=== PATIENT | female | born 1975 | race Caucasian/White ===

== ENCOUNTER → 2020-10-07 08:23 | Outpatient (CLI) | payer OTHER, SELFPAY ==
--- NOTE | ~2020-10-07 | US_ITS ---
US thyroid INDICATION: Iodine deficiency related diffuse goiter. TECHNIQUE: Real-time sonographic images of the thyroid gland were obtained. COMPARISON: No prior studies for comparison. FINDINGS: The right thyroid lobe measures 3.8 x 1.8 x 1.4 cm. The left thyroid lobe measures 4.3 x 1 .5 x 1.4 cm. There is heterogeneous echotexture and echogenicity throughout the thyroid gland. No dis crete nodules identified. Normal vascular flow is present. Isthmus measures 2 mm thickness. IMPRESSION: 1. Heterogeneous thyroid gland without discrete mass. Reviewed, dictated and finalized at location B. NTIFIC AIDE
--- NOTE | ~2020-10-07 | XR_ITS ---
EXAMINATION: XR abdomen obstructive series DATE: 10/07/2020 09:16 INDICATION: Right lower quadrant abdominal pain. TECHNIQUE: Upright and supine views of the abdomen on 3 radiographs were obtained. COMPARISON: Abdomen radiographs 04/19/2018 FINDINGS: There are no dilated loops of bowel. There is a moderate volume of stool in the colon. No f ree intraperitoneal gas. There is an intrauterine device in expected position. IMPRESSION: 1. Normal bowel gas pattern. Reviewed, dictated and finalized at location A. OL CHILD CARE ATTENDANT
--- NOTE | ~2020-10-07 | XR_ITS ---
EXAMINATION: XR lumbar spine min 4V DATE: 10/07/2020 09:16 INDICATION: Low back pain TECHNIQUE: Anteroposterior, lateral, and bilateral oblique views of the lumbar spine, and cone-down l ateral view of the lumbosacral junction were obtained. COMPARISON: None. FINDINGS: There is no fracture, dislocation, or subluxation. The vertebral body heights and intervert ebral disc spaces are normal. There is mild facet osteoarthritis of the lower lumbar spine. An IUD is noted. IMPRESSION: 1. Mild lumbar spondylosis without acute findings. Reviewed, dictated and finalized at location A. ITY BILL COLLECTOR
== END ==
PROVIDERS: PCP Family Medicine; Visit Provider Family Medicine
DX: R10.31 Right lower quadrant pain (principal); E01.0 Iodine-deficiency related diffuse (endemic) goiter; M47.896 Other spondylosis, lumbar region
CPT/HCPCS: 72110; 74019; 76536

== ENCOUNTER → 2020-10-19 14:22 | Outpatient (CLI) | payer OTHER, SELFPAY ==
--- NOTE | ~2020-10-19 | CT_ITS ---
EXAMINATION: CT abdomen pelvis w con DATE: 10/19/2020 15:00 INDICATION: Right lower quadrant abdominal pain, low back pain TECHNIQUE: Computed tomography (CT) of the abdomen and pelvis was performed with 100 cc Omnipaque 350 intravenous contrast. Automated exposure control and iterative reconstruction technique were employe d. Exam dose: 1011.89 mGy-cm total exam DLP. COMPARISON: 10/07/2020 obstructive series FINDINGS: The lung bases are clear of infiltrate or consolidation. Heart size is borderline. No peric ardial or pleural effusion. The liver, gallbladder, bile ducts, pancreas, pancreatic duct are unremarkable. There splenic megaly, spleen measuring up to 16 cm vertical dimension, 14 cm being upper limits of no rmal. Normal morphology of the adrenal glands. No renal mass lesion. No urinary tract calculus or hydroureteronephrosis. Normal caliber of the abdominal aorta. No intraperitoneal or retroperitoneal or pelvic mass lesion or adenopathy or ascites. There is an IUD within the uterus. 1 left ovarian probable cysts; this would be better evaluated by p elvic ultrasound if clinically indicated .7 cm left ovarian probable cyst. The urinary bladder is unr emarkable. Small sliding hiatal hernia. Minimal diverticulosis of the sigmoid colon; no CT evidence of diverticulitis. No bowel obstruction, bowel wall thickening, pneumatosis or intraperitoneal free air. Normal appendix. Small fat-containing umbilical hernia. Included skeletal structures are unremarkable. IMPRESSION: Normal appendix IUD within uterus 1.7 cm left ovarian probable cyst Minimal diverticulosis of the colon Small sliding hiatal hernia Reviewed, dictated and finalized at Location A. Reviewed, dictated and finalized at location A. DIRECTOR
== END ==
PROVIDERS: PCP Family Medicine; Visit Provider Family Medicine
DX: R10.31 Right lower quadrant pain (principal); K57.30 Diverticulosis of large intestine without perforation or abscess without bleeding; K44.9 Diaphragmatic hernia without obstruction or gangrene; Z97.5 Presence of (intrauterine) contraceptive device
CPT/HCPCS: 74177; Q9967

== ENCOUNTER 2021-06-23 07:57 | Outpatient (CLI) | payer OTHER, SELFPAY ==
--- NOTE | ~2021-06-23 | MR_ITS ---
EXAMINATION: MR knee LT wo con DATE: 06/23/2021 09:16 INDICATION: Acute left knee pain. TECHNIQUE: Magnetic resonance imaging (MRI) of the left knee was performed without intravenous contra st. Sequences included axial PD-weighted FS FSE, coronal PD-weighted FSE and PD-weighted FS FSE, sagi ttal PD-weighted FSE, sagittal T2-weighted FS FSE, and axial and coronal STIR FSE. COMPARISON: None. FINDINGS: Medial compartment: Medial meniscus is normal. There is shallow partial-thickness cartilage loss of femoral condyle invol ving the central and posterior articular surface. Tibial cartilage is normal. Lateral compartment: There is a radial tear of posterior horn and posterior root of lateral meniscus. There is cartilage s urface irregularity of tibial condyle and femoral condyle. Patellofemoral compartment: There is shallow partial-thickness cartilage loss of patellar medial facet and odd facet. There is pa rtial-thickness cartilage loss of central trochlea with minimal subchondral edema-like marrow signal intensity. Ligaments and tendons: There are changes of anterior cruciate ligament reconstruction with intact graft. Posterior cruciate ligament demonstrates increased signal, consistent with partial tear. Medial collateral ligament is n ormal. There are changes of prior sprain of tibial collateral ligament characterized by thickening an d increased signal intensity proximally. The patellar tendon is normal. Fluid: There is a small knee joint effusion. There is trace fluid in a Faustin's cyst. There is mild prepatell ar and superficial infrapatellar bursitis. IMPRESSION: 1. Mild tricompartmental chondrosis. 2. Intact anterior cruciate ligament reconstruction. 3. Partial tear of posterior cruciate ligament. 4. Tear of lateral meniscus. 5. Small knee joint effusion. Reviewed, dictated and finalized at location A.
== END 2021-06-23 07:58 | disposition home or self-care (01) ==
LOC: ANHIMG 08:02
PROVIDERS: PCP Family Medicine; Visit Provider Orthopaedic Surgery
DX: M25.462 Effusion, left knee (principal); M17.12 Unilateral primary osteoarthritis, left knee; S83.282A Other tear of lateral meniscus, current injury, left knee, initial encounter; X58.XXXA Exposure to other specified factors, initial encounter
CPT/HCPCS: 73721

== ENCOUNTER 2022-03-21 11:09 | Day surgery (SDC) | payer OTHER, SELFPAY ==
[2022-03-07 10:15] VITALS: BMI 34.0
[2022-03-08 10:03] VITALS: BMI 34.5
--- NOTE | 2022-03-21 11:40 | SUR.PREOP ---
PT STATES LAST STOOL WAS LIQUID STOOL
[2022-03-21 11:44] VITALS: BMI 33.8
[2022-03-21 11:49] VITALS: BP 157/94; PULSE 72; RESP 14; TEMP 36.8; O2SAT 98
[2022-03-21] MEDS: LACTATED RINGERS 1,000 ML 100 ML IV CONT (12:00)
--- NOTE | 2022-03-21 13:10 | WPDANESEPPF ---
Anes - Initial Pre Proc Eval Procedure: Operation Date: 03/21/22 13:00 Proposed Procedures p Esophagogastroduodenoscopy - John Allen MD s Screening Colonoscopy - John Allen MD Date/Time: 03/21/22 13:10 Surgeon: John Allen MD Pre Op Diagnosis: DYSPHAGIA AND NEOPLAM SCREENING Patient Data Age: 46 Gender: F Height: 1.71 m Weight: 99.45 kg Last Vital Signs Temp 36.8 C 03/21/22 11:49 Pulse 72 03/21/22 11:49 Resp 14 03/21/22 11:49 BP 157/94 H 03/21/22 11:49 Pulse Ox 98 03/21/22 11:49 O2 Del Method Room Air 03/21/22 11:49 Allergies Allergy/AdvReac Type Severity Reaction Status Date / Time No Known Allergies Allergy Verified 03/21/22 11:39 Home Medications Medication Instructions Recorded Confirmed Type fexofenadine 180 mg tablet 180 mg PO DAILY 01/20/21 03/21/22 History (Rose Allergy) bupropion HCl 300 mg 24 hr tablet, 300 mg PO QAM 01/26/22 03/21/22 History extended release meloxicam 15 mg tablet 15 mg PO DAILY 01/26/22 03/21/22 History levothyroxine 75 mcg tablet See Rx Instructions .Route 03/01/22 03/21/22 Rx .COMPLEX #90 tabs peg 3350-electrolytes 236 240 ml PO Q10M #4,000 mL 03/07/22 03/21/22 Rx gram-22.74 gram-6.74 gram-5.86 gram solution (Golytely) Patient hx anesthesia problems: none Family hx anesthesia problems: none Results Review: All pre-operative results and documents have been reviewed as part of the pre-operative evaluation. [facility] Past Medical History Medical History Anxiety Depression Hypothyroidism Left ACL tear Surgical History Surgical History H/O oophorectomy right ovary only S/P ACL surgery Right, times 2 in 2013 and 2020 Family History Family History Mother Patient's mother is in good health Other Hypertension Social History Social History Smoking status: Never smoker Second hand tobacco smoke exposure: No Alcohol intake: current Substance use: never Substance use type: does not use Living arrangements: with family Spiritual care concerns: No Anes - Eval Final PreProcedure Day of Procedure 03/21/22 13:10 Patient weight: obese Heart: regular rate and rhythm Lungs: clear to auscultation Airway: Mallampati scale class II Neurological: alert and oriented Last oral intake: >/= 8 hours ASA classification: III Emergent: no Anesthetic plan: proceed Anesthesia type and monitoring: general GIVS and standard monitoring Results Review: All pre-operative results and documents have been reviewed as part of the pre-operative evaluation. Informed Consent: The patient's anesthetic plan and its attendant risks and benefits were discussed with the patient/family/POA. Questions were solicited and answers provided to the satisfaction of the patient/family/POA.
--- NOTE | 2022-03-21 13:59 | PM.IMHP ---
H&P: HPI History of Present Illness Date/Time: 03/21/22 13:59 Chief Complaint: dysphagia and neoplasia screening. Narrative: This is a 46-year-old white female patient presents for EGD and colonoscopy. Patient reports a several year history of difficulty swallowing. She states foods will catch in the throat. She states this happens with all food types. She ate does swallow liquids without difficulty. She denies any heartburn. Has had no specific pain although it is uncomfortable if the food catches. She has had no bleeding. Her weight remains stable. She presents today for EGD. Additionally patient presents for neoplasia screening colonoscopy. Her weight appetite bowel movements are normal. She occasionally has a vague right-sided abdominal discomfort. Review of Systems Review of Systems: Review of systems is noncontributory. [facility] Past Medical History Medical History Anxiety Depression Hypothyroidism Left ACL tear Surgical History Surgical History H/O oophorectomy right ovary only S/P ACL surgery Right, times 2 in 2013 and 2020 Family History Family History Mother Patient's mother is in good health Other Hypertension Social History Social History Smoking status: Never smoker Second hand tobacco smoke exposure: No Alcohol intake: current Substance use: never Substance use type: does not use Living arrangements: with family Spiritual care concerns: No Meds Home Medications and Allergies Home Medications Medication Instructions Recorded Confirmed Type fexofenadine 180 mg tablet 180 mg PO DAILY 01/20/21 03/21/22 History (Rose Allergy) bupropion HCl 300 mg 24 hr tablet, 300 mg PO QAM 01/26/22 03/21/22 History extended release meloxicam 15 mg tablet 15 mg PO DAILY 01/26/22 03/21/22 History levothyroxine 75 mcg tablet See Rx Instructions .Route 03/01/22 03/21/22 Rx .COMPLEX #90 tabs peg 3350-electrolytes 236 240 ml PO Q10M #4,000 mL 03/07/22 03/21/22 Rx gram-22.74 gram-6.74 gram-5.86 gram solution (Golytely) Allergies Allergy/AdvReac Type Severity Reaction Status Date / Time No Known Allergies Allergy Verified 03/21/22 11:39 Vital Signs Vital Signs - 24 hr 03/21/22 11:49 Temperature 98.2 F Pulse Rate 72 Respiratory Rate 14 Blood Pressure 157/94 H Pulse Oximetry 98 Oxygen Delivery Room Air Exam Narrative: Physical exam reveals patient be alert. Vital signs stable. HEENT exam is unremarkable. Patient is anicteric. Lungs are clear to auscultation and percussion. Heart is without murmur or extra sounds. Abdominal exam bowel sounds present soft nontender with no hepatosplenomegaly. Digital external rectal exam is normal. Assessment and Plan Assessment and plan (1) Dysphagia: Code(s): R13.10 - Dysphagia, unspecified Status: Acute Assessment and Plan: Patient has had difficulty swallowing. Plan is for EGD to assess more thoroughly. Further recommendations will be given after endoscopy. (2) Encounter for screening colonoscopy: Code(s): Z12.11 - Encounter for screening for malignant neoplasm of colon Status: Acute Assessment and Plan: Patient presents for neoplasia screening colonoscopy having now being over age 45. Further recommendations will be given after endoscopy
--- NOTE | 2022-03-21 14:21 | SUR.OPER ---
moura dilator passed 50F
[2022-03-21 14:44] VITALS: BP 144/88; PULSE 74; RESP 18; TEMP 36.1; O2SAT 100
[2022-03-21 14:54] VITALS: BP 140/93; PULSE 73; RESP 18; O2SAT 100
[2022-03-21 15:04] VITALS: BP 140/92; PULSE 78; RESP 20; O2SAT 100
--- NOTE | 2022-03-21 15:09 | WPDANESPN ---
Anes - Prog Note Post-Op Date/Time: 03/21/22 15:09 Cardiovascular status: normal Respiratory status: normal Airway patency: baseline Mental status: baseline Post-Op hydration status: normal Vital Signs: Last Vital Signs Temp 36.1 C L 03/21/22 14:44 Pulse 78 03/21/22 15:04 Resp 20 03/21/22 15:04 BP 140/92 H 03/21/22 15:04 Pulse Ox 100 03/21/22 15:04 O2 Del Method Room Air 03/21/22 15:04 Pain Score (VAS): 0/10 I/O: Intake & Output 03/20/22 03/21/22 03/21/22 23:59 07:59 15:59 Intake Total 500 Balance 500 Patient Feedback: Patient satisfied with anesthetic care.
== END 2022-03-21 15:18 | disposition home or self-care (01) ==
PROVIDERS: PCP Family Medicine; Visit Provider Internal Medicine Gastroenterology
PROC: 0DJ08ZZ Inspection of Upper Intestinal Tract, Via Natural or Artificial Opening Endoscopic (ICD-10-PCS; CPT 43235; principal; 2022-03-21 13:00)
PROC: 0DJD8ZZ Inspection of Lower Intestinal Tract, Via Natural or Artificial Opening Endoscopic (ICD-10-PCS; CPT 45378; 2022-03-21 13:00)
DX: R13.10 Dysphagia, unspecified (principal); Z12.11 Encounter for screening for malignant neoplasm of colon
CPT/HCPCS: 45378; 43450